=== PATIENT | male | born 1960 | race Caucasian/White ===

== ENCOUNTER 2018-09-16 10:50 | Inpatient (IN) ==
[2018-09-16] MEDS ORDERED: SODIUM CHLORIDE 0.9% 500 ML IV SCH (11:15)
[2018-09-16 11:27] LABS: Basophils # (auto) 0.02 K/uL (0-0.2); Basophils % (auto) 0.3 %; Eosinophils # (auto) 0.22 K/uL (0-0.5); Eosinophils % (auto) 3.5 %; Hematocrit (blood only) 44.5 % (42-52); Hemoglobin 15.1 g/dL (14.0-18.0); Immature Granulocytes # (auto) 0.03 K/uL (0.00-0.02); Immature Granulocytes % (auto) 0.5 %; Mean Corpuscular Hgb Conc 33.9 g/dL (32-36); Mean Corpuscular Volume 94.3 fL (80-100); Mean Platelet Volume 10.9 fL (7.4-10.4); Monocytes # (auto) 0.39 K/uL (0.11-0.59); Monocytes % (auto) 6.3 %; Neutrophils # (auto) 4.08 K/uL (1.4-6.5); Neutrophils % (auto) 65.4 %; Platelet Count 156 K/uL (130-400); RDW Coefficient of Variation 12.5 % (11.5-14.5); RDW Standard Deviation 42.5 fL (36.4-46.3); Red Blood Count 4.72 M/uL (4.7-6.1); White Blood Count 6.24 K/uL (4.8-10.8)
--- NOTE | 2018-09-16 11:36 | XRay Report ---
XR chest 1V portable HISTORY: Atypical Chest Pain COMPARISON: Chest 07/23/2014. FINDINGS: The heart remains mildly enlarged. No pleural effusions. No pneumothorax. The lungs are glenda ar. No evidence for pulmonary edema. IMPRESSION: Stable mild cardiomegaly. Electronically signed by: Urbano Nunes M.D. 09/16/2018 11:35 AM
[2018-09-16 11:43] LABS: Alanine Aminotransferase 30 U/L (12-78); Albumin Level 3.5 gm/dl (3.4-5.0); Aspartate Aminotransferase 17 U/L (15-37); BUN Creatinine Ratio 18.2 (10-20); Blood Urea Nitrogen 19 mg/dl (7-18); Calcium 8.9 mg/dl (8.5-10.1); Carbon Dioxide 25 mmol/L (21-32); Chloride 108 mmol/L (98-107); Creatinine Clr Calc Pharmacy 90.6 ml/min; Est GFR (Non-African American) 76.8; Glucose 143 mg/dl (70-99); Potassium 3.7 mmol/L (3.5-5.1); Sodium 141 mmol/L (136-145)
[2018-09-16 11:48] LABS: Albumin Globulin Ratio 0.9 (0.9-2); Alkaline Phosphatase 93 U/L (45-117); Bilirubin,Total 0.5 mg/dl (0.2-1); Globulin 3.9 gm/dl (2.5-4.0); Total Protein 7.4 gm/dl (6.4-8.2); Troponin I < 0.015 ng/ml (0-0.045)
[2018-09-16] MEDS ORDERED: ASPIRIN CHEW 324 MG PO STA (14:27)
[2018-09-16] MEDS ORDERED: OPTIRAY 320 125ml IV PRN (15:17)
--- NOTE | 2018-09-16 15:29 | History & Physical Report ---
Date of Service September 16, 2018 Assessment & Plan (1) Pain in lower jaw: Patient presented with atypical symptoms for angina,: Left jaw, lower teeth pain, with no radiation to neck or shoulder or arm, No chest pain or chest heaviness Was relieved after rest Patient was symptom-free after arrival to ER, Need to rule out anginal equivalent: Risk factor includes history of non-ST elevated HI/severe coronary artery disease status post multi vessels PTCA/hypertension, hyperlipidemia Will be admitted to telemetry, serial cardiac markers will be checked, ordered for resting echocardiogram Cardiology evaluation requested Patient will be continued with home cardiac meds of aspirin Plavix beta-juliana and statin ER physician discussed case with on-call cardiology, given no active chest pain no indication for IV heparin Present on Admission?: Yes (2) Elevated troponin: Presents with atypical symptoms for angina, with mild elevation of troponin Possible secondary to demand ischemia? Patient reports of taking Viagra this morning may cause transient hypotension Avoid nitrates Serial cardiac markers to be checked to assess the trend Telemetry monitoring, Resting echo, cardiology evaluation requested Present on Admission?: Yes (3) CAD (coronary artery disease): History of coronary artery disease, non-ST elevated HI on 08/09/2014, Cardiac cath: Showed 100% occlusion of the mid LAD with severe stenosis of diagonal branch vessel artery. 60-70% proximal circumflex coronary artery with 75% mid stenosis with ulceration Patient underwent PTCA/thrombectomy and placement of drug-eluting stent in the mid left anterior descending artery, circumflex coronary artery Patient's recent cardiac stress test in February 2017 at which time he performed 11 minutes and 5 seconds on a standard Epi protocol, peak workload of 14 minutes EKG or echocardiographic evidence of inducible ischemia Patient follows with Dr. Gallagher, Last office visit on 03/2018, patient was found to be symptomatic with stable coronary artery disease Patient is continued on his cardiac meds aspirin Plavix, metoprolol 25 mg p.o. twice daily, Lipitor 40 mg daily Further workup to rule out ACS/angina outlined as above Present on Admission?: Yes (4) History of heart artery stent: Status post drug-eluting stent in mid LAD/circumflex artery in July 2014 Continue with aspirin and Plavix Present on Admission?: Yes (5) H/O: HTN (hypertension): Blood pressure stable: 146/93 Continue Lopressor Avoid nitro use, as patient took Viagra this morning: To prevent hypotension Present on Admission?: Yes (6) HLD (hyperlipidemia): Continue on Lipitor, ordered for fasting lipid panel in a.m. (7) Pre-diabetes: Borderline high glucose level noted in the clinic visit Not on any medication, on diet and exercise only Order for hemoglobin A1c to be checked CODE STATUS: Full code DVT prophylaxis: SCD and teds, patient is encouraged to ambulate Disposition: Expected to be discharged home after cardiac workup Medicine follow-up with Dr. Jyoti Mejía Cardiology follow-up with Dr. Sabino Gallagher Present on Admission?: Yes History of Present Illness Chief Complaint: Left jaw/teeth pain Primary Care Provider: Jyoti Mejía MD This is a 58-year-old male with past medical history of non-ST elevated HI status post stent and LAD, left circumflex in July 2014, hypertension hyperlipidemia Was with Dr. Sabino Gallagher for cardiology, This morning patient was taking a short walk, hard to experience nagging pain on left jaw, lower teeth Not associated with chest heaviness, chest discomfort or shortness of breath Patient was worried about his symptoms given prior history of HI, Return to home, Did not had any further anginal symptoms No complaint of a dizzy spell, lightheadedness, nausea, diaphoresis (does complain of feeling bloated) Did not had breakfast this morning Took his morning meds of Plavix, Lopressor In the ER patient was symptom-free, EKG showed no ST-T wave change Troponin mildly elevated at 0.5 Patient was given full strength aspirin 325 mg Will be admitted to telemetry for cardiac workup Patient reports of taking Viagra this morning/not take sublingual nitro at home Sublingual nitro was given in ER as well No report of fever or chills, has nonproductive cough, nasal congestion for the past few days, abdominal bloating for last few days, no nausea, no vomiting, had episodes of bright red blood per rectum few weeks ago, No complaint of weakness or paresthesia, At baseline patient is very active, typically runs 3 miles a day, Was able to shovel snow during the last winter storm few weeks back without any anginal symptoms Allergies Allergy/AdvReac Type Severity Reaction Status Date / Time No Known Allergies Allergy Unverified 09/16/18 11:52 Home Medications Home Medications Medication Instructions Recorded Confirmed Type acetaminophen [Tylenol] 650 mg PO Q6H PRN 09/16/18 09/16/18 History alfuzosin 10 mg PO HS 09/16/18 09/16/18 History aspirin 81 mg PO QAM 09/16/18 09/16/18 History atorvastatin 40 mg PO HS 09/16/18 09/16/18 History clopidogrel 75 mg PO QAM 09/16/18 09/16/18 History finasteride 5 mg PO HS 09/16/18 09/16/18 History glucosamine sulfate [Glucosamine] 500 mg PO BID 09/16/18 09/16/18 History metoprolol tartrate 25 mg PO BID 09/16/18 09/16/18 History nitroglycerin [Nitrostat] 0.4 mg SUBLINGUAL UD 09/16/18 09/16/18 History Past Med/Surg History Medical History Non-ST elevation myocardial infarction (NSTEMI) (Acute) Surgical History History of heart artery stent (Resolved) Family History Other No pertinent family history Social History Preferred Language: B[place] Feels Safe at Home: Yes Smoking Status: Never smoker Review of Systems All systems reviewed & are unremarkable except as noted in HPI & below Physical Exam Vital Signs (Past 24 Hours): Last Vital Signs Temp 37.0 C 09/16/18 10:54 Pulse 62 09/16/18 15:00 Resp 20 09/16/18 15:00 BP 142/90 H 09/16/18 15:00 Pulse Ox 95 09/16/18 15:00 Physical Exam: GENERAL: No sign of distress, HEENT: Sclera nonicteric, pink-purple bilateral equal reactive to light extraocular muscle intact Normal oral mucosa, neck: No JVD, no thyromegaly, trachea midline Lungs: Clear to auscultate, no wheeze or rales Cardiovascular: Regular S1 and S2, no murmur or gallop, no JVD, no lower extremity edema Abdomen: Soft, nontender, bowel sounds active, no hepatosplenomegaly Extremities: No rash or deformity, normal joint, Neuro: No focal neurological deficit, no dysarthria, no facial droop Psych: Alert awake oriented x3: Euthymic Skin: No rash LYMPH NODES: No cervical lymphadenopathy Code Status & VTE Plan VTE Prophylaxis Plan VTE Prophylaxis will be ordered: Yes (1) CAD (coronary artery disease) Coronary Disease-Associated Artery/Lesion type: curyung artery [place] vs. transplanted heart: curyung heart Associated angina: without angina Qualified Code(s): I25.10 - Atherosclerotic heart disease of curyung coronary artery without angina pectoris (2) HLD (hyperlipidemia) Hyperlipidemia type: unspecified Qualified Code(s): E78.5 - Hyperlipidemia, unspecified
--- NOTE | 2018-09-16 15:30 | Emergency Department Note ---
Entered by Sindhu Mae acting as a scribe for History of Present Illness General Chief complaint: Cardiac Assessment Stated complaint: JAW PAIN,SHOULDER PAIN,HX OF HEART ATTACK Time Seen by Provider: 09/16/18 11:08 Source: patient History of Present Illness Onset (ago): hour(s) (0930 this morning) Location: mouth (jaw) and right (upper shoulder) Pain Consistency: + intermittent (upper right shoulder pain) and + other (after under increased stress as his was diagnosed with breast cancer and she had surgery 1 week ago) Maximum Pain Intensity: 1 Quality: + aching (upper right shoulder pain) and + other (cardiac assessment, dull jaw pain) Associated symptoms: + other (Negative sweating episodes, alcohol or tobacco use, hx of blood clots in his legs or lungs, recent long car or plane travel, swelling in his legs, recent changes in his medications); no chest pain and no shortness of breath The patient is a 58 year old white male w/ PMHx of NSTEMI, CAD status post stent on aspirin and plavix, HTN, HLD who presents to the ED for a cardiac assessment. He reports he went for a run at 0930 this morning, which he normally does, when he suddenly felt a dull pain in his lower jaw. He then developed intermittent upper right shoulder pain which he describes as an ache. The patient states he has been under increased stress as his was diagnosed with breast cancer and had surgery 1 week ago. Pt denies any chest pain, SOB, nausea, vomiting, sweating episodes, alcohol or tobacco use, hx of blood clots in his legs or lungs, recent long car or plane travel, swelling in his legs, recent changes in his medications. He did not take nitro today because he took viagra. His poke in is Dr. Gallagher, Cardiology. Home Medications Home Medications Medication Instructions Recorded Confirmed Type acetaminophen [Tylenol] 650 mg PO Q6H PRN 09/16/18 09/16/18 History alfuzosin 10 mg PO HS 09/16/18 09/16/18 History aspirin 81 mg PO QAM 09/16/18 09/16/18 History atorvastatin 40 mg PO HS 09/16/18 09/16/18 History clopidogrel 75 mg PO QAM 09/16/18 09/16/18 History finasteride 5 mg PO HS 09/16/18 09/16/18 History glucosamine sulfate [Glucosamine] 500 mg PO BID 09/16/18 09/16/18 History metoprolol tartrate 25 mg PO BID 09/16/18 09/16/18 History nitroglycerin [Nitrostat] 0.4 mg SUBLINGUAL UD 09/16/18 09/16/18 History Allergies Allergy/AdvReac Type Severity Reaction Status Date / Time No Known Allergies Allergy Unverified 09/16/18 11:52 Past Med/Surg History Medical History Non-ST elevation myocardial infarction (NSTEMI) (Acute) Surgical History History of heart artery stent (Resolved) Family History Other No pertinent family history Social History Preferred Language: Faroese Feels Safe at Home: Yes Smoking Status: Never smoker Review of Systems See HPI for pertinent positives & negatives. and A total of 10 systems reviewed and were otherwise negative Physical Exam Vital Signs Vital Signs - 24 hr 09/16/18 10:54 09/16/18 11:15 09/16/18 11:16 Temperature 37.0 C Temperature Source Oral Sepsis Recent Fever Within 48 Hours No Sepsis New/Unexplained Change in Mental Status No Sepsis Action Taken by Nursing No Action Required Pulse Rate 118 H 89 Pulse Rate [Apical] 88 Pulse Rate from SpO2 Sensor 89 Respiratory Rate 20 24 23 Respiratory Effort / Characteristics Non-Labored Non-Labored Spontaneous Respiratory Depth Normal Normal Respiratory Pattern Regular Blood Pressure 165/89 H 142/96 H Blood Pressure [Right Arm] 142/96 H Blood Pressure Mean 114 111 Blood Pressure Mean [Right Arm] 111 Blood Pressure Position Sitting Pulse Oximetry 95 92 93 Oxygen Delivery Method Room Air Room Air Room Air 09/16/18 11:17 09/16/18 11:31 09/16/18 12:00 Temperature Temperature Source Sepsis Recent Fever Within 48 Hours Sepsis New/Unexplained Change in Mental Status Sepsis Action Taken by Nursing Pulse Rate 75 68 Pulse Rate [Apical] Pulse Rate from SpO2 Sensor 76 Respiratory Rate 17 15 Respiratory Effort / Characteristics Respiratory Depth Respiratory Pattern Blood Pressure 134/82 121/80 Blood Pressure [Right Arm] Blood Pressure Mean 99 93 Blood Pressure Mean [Right Arm] Blood Pressure Position Pulse Oximetry 93 94 91 Oxygen Delivery Method Room Air Room Air Room Air 09/16/18 12:30 09/16/18 13:00 09/16/18 13:31 Temperature Temperature Source Sepsis Recent Fever Within 48 Hours Sepsis New/Unexplained Change in Mental Status Sepsis Action Taken by Nursing Pulse Rate 64 59 L 64 Pulse Rate [Apical] Pulse Rate from SpO2 Sensor 64 60 64 Respiratory Rate 19 14 19 Respiratory Effort / Characteristics Respiratory Depth Respiratory Pattern Blood Pressure 131/84 124/83 133/85 Blood Pressure [Right Arm] Blood Pressure Mean 99 96 101 Blood Pressure Mean [Right Arm] Blood Pressure Position Pulse Oximetry 96 93 Oxygen Delivery Method Room Air Room Air 09/16/18 14:48 09/16/18 15:00 Temperature Temperature Source Sepsis Recent Fever Within 48 Hours Sepsis New/Unexplained Change in Mental Status Sepsis Action Taken by Nursing Pulse Rate 62 Pulse Rate [Apical] 82 Pulse Rate from SpO2 Sensor 65 Respiratory Rate 16 20 Respiratory Effort / Characteristics Respiratory Depth Respiratory Pattern Blood Pressure 142/90 H Blood Pressure [Right Arm] 154/91 H Blood Pressure Mean 107 Blood Pressure Mean [Right Arm] 112 Blood Pressure Position Pulse Oximetry 94 95 Oxygen Delivery Method Room Air Room Air GENERAL: Well appearing, well nourished, NAD, non-toxic. EYE EXAM: Normal conjunctiva. PERRL, no anisocoria and EOM's grossly intact w/o pain OROPHARYNX: Moist MM. NECK: Supple, no nuchal rigidity, no adenopathy, non-tender. No signs of meningismus LUNGS: Clear to auscultation. Normal chest wall mechanics. HEART: NSR, no MRG CHEST: No reproducible chest wall pain ABDOMEN: Abdomen soft, non-tender, normo-active bowel sounds, no masses, no rebound or guarding. BACK: No CVA TTP SKIN: No rashes and no bruising. UPPER EXTREMITIES: Upper extremities are grossly normal. LOWER EXTREMITIES: No pitting edema. No calf pain. Negative Seymour�s sign NEURO EXAM: A and O x3. GCS 15. Moves all 4 extremities. Course 1113: Past medical records reviewed. The patient was evaluated in room C12, and a complete history and physical examination were performed. 1339: I reviewed the patient's case with Dr. Medley, Cardiology. He states if both troponins are negative, given the unchanged EKGs and less concerning history, he may follow up as an outpatient. 1435:I reviewed the patient's case with Dr. Medley, Cardiology. He does not believe the patient needs to be heparinized. He wants to trend it. 1444: I reviewed the patient's case with Teagan Lisa PA-C [facility] Hospitalist. Dr. Jaquez [facility] Hospitalist will evaluate the patient for further management. Consultations Consultation #1: I reviewed the patient's case with Dr. Medley, Cardiology. He states if both troponins are negative, given the unchanged EKGs and less concerning history, he may follow up as an outpatient. Time: 13:39 Consultation #2: I reviewed the patient's case with Dr. Medley, Cardiology. He does not believe the patient needs to be heparinized. He wants to trend it. Time: 14:35 Consultation #3: I reviewed the patient's case with Teagan Lisa PA-C [facility] Hospitalist. Dr. Jaquez [facility] Hospitalist will evaluate the patient for further management. Time: 14:44 Administered Medications Ioversol (Optiray 320 125ml) 119 ml IV ONCE PRN PRN Reason: Interaction Checking Stop: 09/20/18 15:16 Last Admin: 09/16/18 15:18 Dose: 119 ml Documented by: [id number] Discontinued Medications Aspirin (Aspirin) 324 mg PO NOW STA Stop: 09/16/18 14:28 Last Admin: 09/16/18 14:47 Dose: 324 mg Documented by: [id number] Sodium Chloride (Nss) 500 mls @ 999 mls/hr IV .Q31M OSCAR Stop: 09/16/18 11:45 Last Infusion: 09/16/18 11:56 Dose: 0 mls/hr Documented by: [id number] Admin: 09/16/18 11:25 Dose: 999 mls/hr Documented by: [id number] Medical Decision Making Medical Records Attestation: I reviewed the patient's medical records. Home Medications Current Medication List: was personally reviewed by me Laboratory Data Attestation: I reviewed the patient's lab results. Result diagrams: 09/16/18 11:10 09/16/18 11:10 Lab Results 09/16/18 09/16/18 09/16/18 Range/Units 11:10 11:10 13:33 WBC 6.24 (4.8-10.8) K/uL RBC 4.72 (4.7-6.1) M/uL Hgb 15.1 (14.0-18.0) g/dL Hct 44.5 (42-52) % MCV 94.3 (80-100) fL MCH 32.0 (25-34) pg MCHC 33.9 (32-36) g/dL RDW Std Deviation 42.5 (36.4-46.3) fL RDW Coeff of Octavia 12.5 (11.5-14.5) % Plt Count 156 (130-400) K/uL MPV 10.9 H (7.4-10.4) fL Immature Gran % (Auto) 0.5 % Neut % (Auto) 65.4 % Lymph % (Auto) 24.0 % [place] % (Auto) 6.3 % Eos % (Auto) 3.5 % Baso % (Auto) 0.3 % Immature Gran # (Auto) 0.03 H (0.00-0.02) K/uL Neut # (Auto) 4.08 (1.4-6.5) K/uL Lymph # (Auto) 1.50 (1.2-3.4) K/uL P[place] # (Auto) 0.39 (0.11-0.59) K/uL Eos # (Auto) 0.22 (0-0.5) K/uL Baso # (Auto) 0.02 (0-0.2) K/uL Sodium 141 (136-145) mmol/L Potassium 3.7 (3.5-5.1) mmol/L Chloride 108 H (98-107) mmol/L Carbon Dioxide 25 (21-32) mmol/L Anion Gap 8.0 (3-11) BUN 19 H (7-18) mg/dl Creatinine 1.05 (0.6-1.4) mg/dl Est Cr Clr Drug Dosing 90.6 ml/min Est GFR ( Amer) 89.0 Est GFR (Non-Af Amer) 76.8 BUN/Creatinine Ratio 18.2 (10-20) Glucose 143 H (70-99) mg/dl Calcium 8.9 (8.5-10.1) mg/dl Magnesium 2.0 (1.8-2.4) mg/dl Total Bilirubin 0.5 (0.2-1) mg/dl AST 17 (15-37) U/L ALT 30 (12-78) U/L Alkaline Phosphatase 93 (45-117) U/L Troponin I < 0.015 0.052 H* (0-0.045) ng/ml Total Protein 7.4 (6.4-8.2) gm/dl Albumin 3.5 (3.4-5.0) gm/dl Globulin 3.9 (2.5-4.0) gm/dl Albumin/Globulin Ratio 0.9 (0.9-2) Lipase 69 L (73-393) U/L Imaging Data Radiologist's Impression: Radiology results as stated below per my review and the radiologist's interpretation: XR chest 1V portable HISTORY: Atypical Chest Pain COMPARISON: Chest 07/23/2014. FINDINGS: The heart remains mildly enlarged. No pleural effusions. No pneumothorax. The lungs are clear. No evidence for pulmonary edema. IMPRESSION: Stable mild cardiomegaly. Electronically signed by: Urbano Nunes M.D. 09/16/2018 11:35 AM ECG Data Attestation: I personally reviewed and interpreted this ECG as follows: Indication: other (cardiac assessment) Rate (beats per minute): 97 Rhythm: normal sinus Findings: + other (normal intervals, normal axis); no acute ischemic change Comparison ECG Date: from (07/26/14) Change: the following changes noted (TWI and T-wave flattening in high lateral leads was present and is now improved ) Additional Comments: ECG done at 1446 today shows no change compared to previous ECG done today. Blood Pressure Blood Pressure Findings: Elevated blood pressure Blood Pressure Disposition: further management by hospitalist [facility] Narrative Prior records/ancillary studies reviewed. Triage nursing notes reviewed. The patient is a 58 year old white male w/ PMHx of NSTEMI, CAD status post stent on aspirin and plavix, HTN, HLD who presents to the ED for a cardiac assessment. Differential diagnosis: Etiologies such as cardiac ischemia, aortic dissection, pulmonary embolism, pneumonia, pneumothorax, musculoskeletal, infections, pericarditis, myocarditis, esophageal rupture, gastrointestinal, as well as others were entertained. Patient was seen and evaluated the bedside. The patient does have a known prior history of CAD status post stent placement and currently is on aspirin as well as Plavix. The patient states this morning around 930 he developed an atypical jaw pain. Patient states the last time he had his GA he had jaw pain. Patient does not complain of exertional symptoms nausea vomiting. The patient otherwise states he has been feeling relatively well. The patient had taken Viagra this morning. Patient did not take any nitro prior to arrival. Patient's EKG does not show any acute changes compared to last EKG available in our system from 2013. The patient initial troponin was negative. Patient has not had any recurrence of chest pains. I discussed the case with the on-call poke in who stated that given the patient's history and physical exam of the second troponin was negative he can go home. The patient's repeat troponin was detectable. I did speak the on-call poke in who stated he may be further evaluated to trend the enzymes but would not start heparin at this time. Patient was given full dose aspirin. Repeat EKG was completed which is not show any acute changes. The patient does have a slightly lower O2 sat the patient is a non-smoker. He has been satting in the low 90s. Given this and his associated lower but normal sats a CT of the chest was ordered. This was pending at the time of admission. I did speak with the on-call hospitalist who agreed to further evaluate treat the patient. Patient was admitted to the medicine service. Impression & Plan Elevated troponin, Atypical chest pain Discharge Plan Visit Data Chief Complaint: Cardiac Assessment Stated Complaint: JAW PAIN,SHOULDER PAIN,HX OF HEART ATTACK ED Provider: Carlos Rhodes Discharge Problem: Elevated troponin, Atypical chest pain Patient Disposition: Being Evaluated by Hospitalist Forms Stand Alone Forms: My [facility] Prescriptions Prescriptions: No Action atorvastatin 40 mg tablet 40 mg PO HS RF: 0 acetaminophen [Tylenol] 325 mg Tablet 650 mg PO Q6H PRN (Reason: Pain) RF: 0 glucosamine sulfate [Glucosamine] 500 mg Tablet 500 mg PO BID RF: 0 clopidogrel 75 mg tablet 75 mg PO QAM RF: 0 aspirin 81 mg Tablet,Delayed Release (Dr/Ec) 81 mg PO QAM RF: 0 nitroglycerin [Nitrostat] 0.4 mg Tablet, Sublingual 0.4 mg Sublingual UD RF: 0 finasteride 5 mg tablet 5 mg PO HS RF: 0 alfuzosin 10 mg tablet extended release 24 hr 10 mg PO HS RF: 0 metoprolol tartrate 25 mg tablet 25 mg PO BID RF: 0 Referrals Referrals: Jyoti Mejía MD [Primary Care Provider] - The scribe's documentation has been prepared under my direction and personally reviewed by me in its entirety. I confirm that the note above accurately reflects all work, treatment, procedures, and medical decision making performed by me.
--- NOTE | 2018-09-16 16:01 | CT Scan Report ---
CHEST CTA for PULMONARY ARTERIES CT DOSE: 541.20 mGy.cm HISTORY: Atypical chest pain. TECHNIQUE: Multiaxial CT images of the chest were performed following the intravenous administration of contrast to evaluate the pulmonary arteries. Maximal intensity projection images were also obtaine d. A dose lowering technique was utilized adhering to the principles of ALARA. COMPARISON STUDY: Chest CTA 07/23/2014. FINDINGS: The heart remains mildly enlarged. No pleural or pericardial effusions. Normal caliber thor acic aorta with no evidence for dissection. No filling defects within the pulmonary arteries to sugge st pulmonary embolus. No pneumothorax. The central airways are patent. Bibasilar linear densities fav or scarring or atelectasis. A 4 mm subpleural nodule along the right minor fissure, unchanged. Theref ore, this is considered to be benign. No focal lung consolidations to suggest pneumonia. Prominent me diastinal and hilar lymph nodes remain stable. The visualized liver and spleen are unremarkable. No s uspicious lytic or blastic osseous lesions. IMPRESSION: 1. No evidence for pulmonary embolus. 2. Stable mild cardiomegaly. 3. Stable prominent mediastinal and hilar lymph nodes. Electronically signed by: Urbano Nunes M.D. 09/16/2018 4:00 PM
[2018-09-16] MEDS ORDERED: ACETAMINOPHEN 325 MG TAB PO PRN (16:20)
[2018-09-16] MEDS ORDERED: NITROGLYCERIN SL 0.4 MG/TAB TAB SL PRN (16:20)
[2018-09-16] MEDS ORDERED: MAGNESIUM HYDROXIDE SUSP 30 ML UDC PO PRN (16:20)
[2018-09-16] MEDS ORDERED: ALUMINUM/MAGNESIUM SUSP 30 ML UDC PO PRN (16:20)
[2018-09-16] MEDS ORDERED: ALFUZOSIN HCL 10 MG TAB PO SCH (21:00)
[2018-09-16] MEDS ORDERED: FINASTERIDE 5 MG TAB PO SCH (21:00)
[2018-09-16] MEDS ORDERED: ATORVASTATIN 40 MG TAB PO SCH (21:00)
[2018-09-16] MEDS ORDERED: NON-FORMULARY MEDICATION (Glucosamine Sulfate [Glucosamine] 500 MG) PO SCH (21:00)
[2018-09-16] MEDS ORDERED: METOPROLOL TARTRATE 25 MG TAB PO SCH (21:00)
[2018-09-17 06:40] LABS: Troponin I 0.024 ng/ml (0-0.045)
[2018-09-17] MEDS ORDERED: ASPIRIN 81 MG ECTAB PO SCH (09:00)
[2018-09-17] MEDS ORDERED: CLOPIDOGREL BISULFATE 75 MG TAB PO SCH (09:00)
[2018-09-17] MEDS ORDERED: METOPROLOL TARTRATE 25 MG TAB PO SCH (11:15)
--- NOTE | 2018-09-17 12:17 | Discharge Summary ---
Date of Service September 17, 2018 Admission HPI Per Admitting Provider This is a 58-year-old male with past medical history of non-ST elevated KS status post stent and LAD, left circumflex in July 2014, hypertension hyperlipidemia Was with Dr. Sabino Gallagher for cardiology, This morning patient was taking a short walk, hard to experience nagging pain on left jaw, lower teeth Not associated with chest heaviness, chest discomfort or shortness of breath Patient was worried about his symptoms given prior history of KS, Return to home, Did not had any further anginal symptoms No complaint of a dizzy spell, lightheadedness, nausea, diaphoresis (does complain of feeling bloated) Did not had breakfast this morning Took his morning meds of Plavix, Lopressor In the ER patient was symptom-free, EKG showed no ST-T wave change Troponin mildly elevated at 0.5 Patient was given full strength aspirin 325 mg Will be admitted to telemetry for cardiac workup Patient reports of taking Viagra this morning/not take sublingual nitro at home Sublingual nitro was given in ER as well No report of fever or chills, has nonproductive cough, nasal congestion for the past few days, abdominal bloating for last few days, no nausea, no vomiting, had episodes of bright red blood per rectum few weeks ago, No complaint of weakness or paresthesia, At baseline patient is very active, typically runs 3 miles a day, Was able to shovel snow during the last winter storm few weeks back without any anginal symptoms Admission Exam Per Admitting Provider GENERAL: No sign of distress, HEENT: Sclera nonicteric, pink-purple bilateral equal reactive to light extraocular muscle intact Normal oral mucosa, neck: No JVD, no thyromegaly, trachea midline Lungs: Clear to auscultate, no wheeze or rales Cardiovascular: Regular S1 and S2, no murmur or gallop, no JVD, no lower extremity edema Abdomen: Soft, nontender, bowel sounds active, no hepatosplenomegaly Extremities: No rash or deformity, normal joint, Neuro: No focal neurological deficit, no dysarthria, no facial droop Psych: Alert awake oriented x3: Euthymic Skin: No rash LYMPH NODES: No cervical lymphadenopathy Principal Diagnosis LEFT JAW PAIN -RESOLVED /HX OF CORONARY ARTERY DISEASE /NEGATIVE CARDIAC STRESS TEST Discharge Exam GENERAL: No sign of distress, HEENT: Sclera nonicteric, pink-purple bilateral equal reactive to light extraocular muscle intact Normal oral mucosa, neck: No JVD, no thyromegaly, trachea midline Lungs: Clear to auscultate, no wheeze or rales Cardiovascular: Regular S1 and S2, no murmur or gallop, no JVD, no lower extremity edema Abdomen: Soft, nontender, bowel sounds active, no hepatosplenomegaly Extremities: No rash or deformity, normal joint, Neuro: No focal neurological deficit, no dysarthria, no facial droop Psych: Alert awake oriented x3: Euthymic Skin: No rash LYMPH NODES: No cervical lymphadenopathy Discharge Data Allergies Allergy/AdvReac Type Severity Reaction Status Date / Time No Known Allergies Allergy Unverified 09/16/18 11:52 Consultations 09/16/18 14:32 ED Decision to Admit Stat 09/16/18 15:35 ED Decision to Admit Stat 09/16/18 16:36 Consult Cardiology Routine Ordered Studies 09/16/18 14:38 CT angio chest PE protocol Stat Hospital Course (1) Pain in lower jaw: Patient presented with atypical symptoms for angina,: Left jaw, lower teeth pain, with no radiation to neck or shoulder or arm, No chest pain or chest heaviness Was relieved after rest pt has been symptom free since admission resting ECHO shows no wall motion abnormality Left ventricular hypertrophy with no left ventricle outflow obstruction Exercise stress test shows no evidence of stress-induced ischemia Appreciate input from cardiology, Lopressor dose adjusted increased to 37.5 mg p.o. twice daily, previously was on 25 mg p.o. twice daily Scheduled for cardiology follow-up With Dr. Gallagher on 10/02/2018 (2) Elevated troponin: No evidence of acute coronary event, negative cardiac stress test Troponin level normalized after serial checking, last troponin was 0.024 He is asked not to take Viagra to follow-up with cardiology Beta-juliana dose adjusted as above (3) CAD (coronary artery disease): History of coronary artery disease, non-ST elevated KS on 08/09/2014, Cardiac cath: Showed 100% occlusion of the mid LAD with severe stenosis of diagonal branch vessel artery. 60-70% proximal circumflex coronary artery with 75% mid stenosis with ulceration Patient underwent PTCA/thrombectomy and placement of drug-eluting stent in the mid left anterior descending artery, circumflex coronary artery Patient's recent cardiac stress test in February 2017 at which time he performed 11 minutes and 5 seconds on a standard Epi protocol, peak workload of 14 minutes EKG or echocardiographic evidence of inducible ischemia Patient follows with Dr. Gallagher, Last office visit on 03/2018, patient was found to be symptomatic with stable coronary artery disease Patient is continued on his cardiac meds aspirin Plavix, Lipitor 40 mg daily Exercise cardiac stress test negative: Resting echo shows normal EF of 65-70% with left ventricular hypertrophy Lopressor dose adjusted to 37.5 mg twice daily pt is scheduled to see cardiology Dr. Gallagher on October 02, 2018 in clinic (4) History of heart artery stent: Status post drug-eluting stent in mid LAD/circumflex artery in July 2014 Continue with aspirin and Plavix Cardiac workup negative for angina, cardiac ischemia (5) H/O: HTN (hypertension): Blood pressure stable: 146/93 Continue Lopressor Dose adjusted as above (6) HLD (hyperlipidemia): Continue on Lipitor, Fasting lipid panel shows well-controlled cholesterol profile with LDL 69 (goal less than 70 HDL of 61 (7) Pre-diabetes: Borderline high glucose level noted in the clinic visit Not on any medication, on diet and exercise only Order for hemoglobin A1c Report was pending during discharge CODE STATUS: Full code DVT prophylaxis: SCD and teds, patient is encouraged to ambulate Disposition: stble to be discharged home today Medicine follow-up with Dr. Jyoti Mejía On 09/26/2018 Cardiology follow-up with Dr. Sabino Gallagher On 10/03/1999 Total Time Total Time Spent Total Time Spent (In Minutes): Approximate 40 minutes Total Time Includes: Examination of the Patient, Discharge Planning, Medication Reconciliation and Communication With Other Providers Discharge Plan Discharge Items Patient Disposition: Home - Self-Care Reason For Visit: chest pain Discharge Diagnosis: LEFT JAW PAIN -RESOLVED /HX OF CORONARY ARTERY DISEASE /NEGATIVE CARDIAC STRESS TEST Discharge Goals: Decrease discomfort Activity: Resume your previous activity Non-emergency contact: Primary Care Provider Call non-emergency contact if: you have any medication questions Follow-up/Referrals: Easton Glalagher DO [[facility]] - 10/02/18 1:15 pm Jyoti Mejía MD [Primary Care Provider] - 09/26/18 12:45 pm Diet: Heart Healthy Addtl Provider Instructions: TAKE ASPIRIN /PLAVIX WITH FULL STOMACH -AFTER BIGGEST MEAL OF THE DAY TO PREVENT SEVERE ACID REFLUX /GASTRITIS -WHICH CAN LEAD BLEEDING IN YOUR STOMACH DO NOT TAKE ALEVE , MOTRIN , IBUPROPHEN , NAPROXEN AVOID OVER THE COUNTER NSAID'S FOR FEVER OR PAIN CAN LEAD TO STOMACH IRRITATION WITH COMBINATION OF ASPIRIN AND PLAVIX PLEASE CALL YOUR FAMILY PHYSICIAN OR COME TO ER WITH ANY RECURRENCE OF YOUR SYMPTOM Prescriptions: New metoprolol tartrate 25 mg Tablet 37.5 mg PO BID 30 Days Qty: 90 RF: 3 Continued atorvastatin 40 mg tablet 40 mg PO HS RF: 0 acetaminophen [Tylenol] 325 mg Tablet 650 mg PO Q6H PRN (Reason: Pain) RF: 0 glucosamine sulfate [Glucosamine] 500 mg Tablet 500 mg PO BID RF: 0 clopidogrel 75 mg tablet 75 mg PO QAM RF: 0 aspirin 81 mg Tablet,Delayed Release (Dr/Ec) 81 mg PO QAM RF: 0 nitroglycerin [Nitrostat] 0.4 mg Tablet, Sublingual 0.4 mg Sublingual UD RF: 0 finasteride 5 mg tablet 5 mg PO HS RF: 0 alfuzosin 10 mg tablet extended release 24 hr 10 mg PO HS RF: 0 Discontinued metoprolol tartrate 25 mg tablet 25 mg PO BID RF: 0 Stand-Alone Forms: [facility] [employer] [facility]/Other Patient Handouts: Angina Heart Attack Recognize Discharge Orders: Discharge Order (Routine); Ordered 09/17/18 Ordered By: Felicitas Jaquez Admission Data Admit Date/Time: 09/16/18 15:30 Attending Provider: Felicitas Jaquez Admit Provider: Felicitas Jaquez Primary Care Provider: Jyoti Mejía Other Providers: Brennan Raphale ; Felicitas Jaquez ; Gustavo Medley Service: Telemetry
--- NOTE | 2018-09-17 12:58 | Cardiology Consultation ---
Date of Consultation September 17, 2018 Assessment & Plan (1) Pain in lower jaw: Symptoms had atypical features and were not worsened or exacerbation by exercise. No recurrence here in hospital Plan stress testing as listed below (2) Elevated troponin: Troponins minimally elevated with normal EKGs no signs or symptoms to suggest ongoing ischemia historically. Patient referred and underwent stress echocardiography to this morning. Patient exercised for 9 minutes and 30 seconds on a Epi protocol without stress- induced ischemia with normal resting and stress LV function. Study was notable for accelerated heart rate response to exercise although study was performed off a.m. metoprolol Recommendations: Patient okay for discharge to home on usual medications with slight increase in metoprolol to 37.5 mg twice per day Follow-up with primary media planner / buyer in the next 2-4 weeks time No running until after seen by media planner / buyer Patient to report any recurrence of symptoms Avoid sildenafil (3) CAD (coronary artery disease): (4) History of heart artery stent: History of Present Illness Reason for Consultation: Jaw pain, history of coronary artery disease Requesting Physician: Dr. Jaquez Attending Physician: Felicitas Jaquez MD History of Present Illness Patient is a 58-year-old male carries a history of known coronary artery disease having undergone a acute coronary intervention for acute coronary syndrome receiving drug-eluting stents to the mid left understanding for occlusion as well as to the left circumflex. Patient has done well since that time. Without recurrence of angina or cardiac limitation. He exercises frequently often walking running at [facility] between an hour and hour and half regularly. Notes no exertional symptoms or change in exercise capacity. Notes no tachypalpitations syncope or near syncope has been aware of increased stress recently. Date of admission patient notes having used sildenafil earlier that morning and began experiencing symptoms of mild jaw numbness and tenderness. As this was not a feature of his prior angina he was concerned. He did go for a run without worsening of symptoms however due to concerns he presented to the ER for further evaluation. Initial troponin and EKGs were unrevealing second troponin was minimally elevated he was referred for hospitalization. He denies fevers chills sweats, cough hoarseness wheeze, melena hematochezia dys uria hematuria. Notes no headache or visual change. Has been taking medications as prescribed. Does have difficulties with urination and past history of mild light in this 1 year ago on combination of alfluzin and and finasteride Allergies Allergy/AdvReac Type Severity Reaction Status Date / Time No Known Allergies Allergy Unverified 09/16/18 11:52 Home Medications Home Medications Medication Instructions Recorded Confirmed Type acetaminophen [Tylenol] 650 mg PO Q6H PRN 09/16/18 09/16/18 History alfuzosin 10 mg PO HS 09/16/18 09/16/18 History aspirin 81 mg PO QAM 09/16/18 09/16/18 History atorvastatin 40 mg PO HS 09/16/18 09/16/18 History clopidogrel 75 mg PO QAM 09/16/18 09/16/18 History finasteride 5 mg PO HS 09/16/18 09/16/18 History glucosamine sulfate [Glucosamine] 500 mg PO BID 09/16/18 09/16/18 History nitroglycerin [Nitrostat] 0.4 mg SUBLINGUAL UD 09/16/18 09/16/18 History metoprolol tartrate 37.5 mg PO BID 30 Days #90 tab 09/17/18 Rx Patient History Medical History HLD (hyperlipidemia) (Chronic) H/O: HTN (hypertension) (Chronic) CAD (coronary artery disease) (Chronic) Non-ST elevation myocardial infarction (NSTEMI) (Acute) Surgical History History of heart artery stent (Acute) Family History Other No pertinent family history Social History Preferred Language: Croatian Beliefs That Will Affect Care: None Current Living Situation: Spouse Other Information That Helps Us Care for You: No Feels Safe at Home: No Smoking Status: Never smoker Hx Alcohol Use: No Hx Substance Use: No Review of Systems As per HPI and otherwise negative Physical Exam Vital Signs (Past 24 Hours): Last Vital Signs Temp 36.7 C 09/17/18 12:55 Pulse 74 09/17/18 12:55 Resp 24 09/17/18 12:55 BP 139/79 09/17/18 12:55 Pulse Ox 94 09/17/18 12:55 Constitutional: WD/WN, vitals as above Eyes: PERRL, conjunctivae normal, anicteric sclerae ENMT: external ear and nose normal, oropharynx normal Neck: trachea midline, no thyromegaly Respiratory: normal respiratory effort, lungs clear to auscultation Cardiovascular: RRR, no murmur, no edema Heart Sounds: normal S1 and normal S2; no gallop Vessels: normal carotid upstroke; no JVD Gastrointestinal (Abdomen): normal bowel sounds, soft, nontender, no hepatosplenomegaly Musculoskeletal: no cyanosis or clubbing, extremities motor strength 5/5 Neurologic: PERRL, EOMI, accommodation nl, no face palsy, no dysarthria Psychiatric: A+Ox3, euthymic affect Results & Data Laboratory Results Laboratory Results - last 24 hr 09/16/18 09/16/18 09/16/18 13:33 13:33 16:52 Troponin I 0.052 H* 0.092 H* Triglycerides Cholesterol LDL Cholesterol, Calc VLDL Cholesterol, Calc HDL Cholesterol Cholesterol/HDL Ratio TSH 1.190 09/16/18 09/17/18 23:22 05:39 Troponin I 0.041 0.024 Triglycerides 76 Cholesterol 125 LDL Cholesterol, Calc 69 VLDL Cholesterol, Calc 15 HDL Cholesterol 41 Cholesterol/HDL Ratio 3 TSH ECG Additional Comments: [id number] 06:35:12 [facility] Normal sinus rhythm Normal ECG When compared with ECG of 16-SEP-2018 14:46, (unconfirmed) No significant change was found (1) CAD (coronary artery disease) Coronary Disease-Associated Artery/Lesion type: [place] artery [place] vs. transplanted heart: [place] heart Associated angina: without angina Qualified Code(s): I25.10 - Atherosclerotic heart disease of [place] coronary artery wit hout angina pectoris
[2018-09-18 06:26] LABS: Estimated Average Glucose 148 mg/dl; Hemoglobin A1C 6.8 % (4.5-5.6)
== END 2018-09-17 13:32 | disposition home or self-care (01) | DRG 159 ==
LOC: ED 10:50 → 2E 15:30